=== PATIENT | male | born 1965 | race Caucasian/White ===

== ENCOUNTER 2018-04-21 09:50 | Emergency (ER) | payer BC, OTHER ==
--- NOTE | 2018-04-21 10:38 | EDM.PDOC ---
ED HPI GENERAL MEDICAL PROBLEM - General Chief Complaint: Abdominal Pain Stated Complaint: ABD PAIN/HERNIA Time Seen by Provider: 04/21/18 10:23 Source of Information: Reports: Patient History Limitations: Reports: No Limitations - History of Present Illness INITIAL COMMENTS - FREE TEXT/NARRATIVE: Abdominal pain, started this am around 9:15; he states he has had this one time before. He has an umbilical hernia (non diagnosed) and states that his abdomen became rigid and painful. He left a meeting, had to lie down and the pain resolved. This was the same thing that happened in the past. No fever. No nausea or vomiting. He has had rapid weight loss over the last couple of months (on purpose). Onset: Today Duration: Hour(s): (1) Quality: Reports: Ache, Pressure, Sharp, Stabbing Improves with: Reports: Rest Worsens with: Reports: Movement Associated Symptoms: Reports: No Other Symptoms Abdominal Pain Score (Numeric/FACES): 0 - Related Data Allergies Allergy/AdvReac Type Severity Reaction Status Date / Time No Known Allergies Allergy Verified 04/21/18 10:09 Home Meds: Home Meds NK [No Known Home Meds] 04/21/18 [History] Past Medical History Respiratory History: Reports: Sleep Apnea - Past Surgical History Musculoskeletal Surgical History: Reports: Arthroscopic Knee Social & Family History - Tobacco Use Smoking Status *Q: Never Smoker - Recreational Drug Use Recreational Drug Use: No ED ROS GENERAL - Review of Systems Review Of Systems: See Below Constitutional: Reports: No Symptoms Respiratory: Reports: No Symptoms Cardiovascular: Reports: No Symptoms GI/Abdominal: Reports: Abdominal Pain : Reports: No Symptoms Musculoskeletal: Reports: No Symptoms Skin: Reports: No Symptoms Neurological: Reports: No Symptoms ED EXAM, GENERAL - Physical Exam Exam: See Below Exam Limited By: No Limitations General Appearance: Alert, WD/WN, No Apparent Distress Head: Atraumatic, Normocephalic Neck: Full Range of Motion Respiratory/Chest: No Respiratory Distress, Lungs Clear, Normal Breath Sounds Cardiovascular: Normal Peripheral Pulses, Regular Rate, Rhythm, No Edema GI/Abdominal: Normal Bowel Sounds, Soft, Non-Tender, Hernia (umbilical) Extremities: Normal Inspection Neurological: Alert, Oriented, CN II-XII Intact, Normal Cognition, Normal Gait Psychiatric: Normal Affect, Normal Mood Skin Exam: Warm, Dry, Intact, Normal Color Course - Vital Signs Last Recorded V/S: Last Vital Signs Temp 96.3 F 04/21/18 10:07 Pulse 66 04/21/18 10:07 Resp 13 04/21/18 10:07 BP 143/88 H 04/21/18 10:07 Pulse Ox 98 04/21/18 10:07 - Orders/Labs/Meds Orders: Active Orders 24 hr Category Date Time Status UA W/MICROSCOPIC [URIN] Stat Lab 04/21/18 11:24 Ordered - Re-Assessments/Exams Free Text/Narrative Re-Assessment/Exam: 04/21/18 11:30 abdominal xray shows no obstruction, free air or abnormal fluid levels. Departure - Departure Time of Disposition: 11:27 Disposition: Home, Self-Care 01 Condition: Good Clinical Impression: Umbilical hernia Clinical Impression: (Ruled Out): Umbilical hernia with obstruction, without gangrene - Discharge Information Instructions: Hernia, Adult Referrals: Davis Estrada MD [Primary Care Provider] - Forms: ED Department Discharge Additional Instructions: They will contact you for appointment time for the ultrasound. If you have pain again and it does not subside after 1-2 hours, come back to the ER Keep hydrated - Problem List & Annotations (1) Umbilical hernia SNOMED Code(s): 182604169 Code(s): K42.9 - UMBILICAL HERNIA WITHOUT OBSTRUCTION OR GANGRENE Status: Acute Priority: Low Current Visit: Yes - My Orders Last 24 Hours: My Active Orders 04/21/18 11:24 UA W/MICROSCOPIC [URIN] Stat - Assessment/Plan Last 24 Hours: My Active Orders 04/21/18 11:24 UA W/MICROSCOPIC [URIN] Stat
--- NOTE | 2018-04-21 11:08 | CR ---
Abdomen 2V AP Flat Upright INDICATION: abdominal pain, hernia? COMPARISON: None FINDINGS: 4 views. No abnormal bowel gas pattern. No free air or abnormal air-fluid levels. No signs of obstruction. No abnormal calculi. If clinical concern for hernia persists, consider ultrasound.
== END 2018-04-21 11:34 | disposition home or self-care (01) ==
LOC: JP.ED 09:50
DX: K42.9 Umbilical hernia without obstruction or gangrene (principal)
CPT/HCPCS: 74019; 74019-26; 81001; 99284

== ENCOUNTER 2018-05-04 06:27 | Day surgery (SDC) | payer BC ==
[2018-05-04] MEDS ORDERED: fentaNYL 250 MCG/5 ML SDV ONE ×2 (06:50→08:21)
[2018-05-04] MEDS ORDERED: Glycopyrrolate 0.2 MG/ML 5 ML MDV ONE (06:51)
[2018-05-04] MEDS ORDERED: Neostigmine Methylsulfate 1 MG/ML 5 ML Syringe ONE (06:51)
[2018-05-04] MEDS ORDERED: Propofol 200 MG/20 ML SDV ONE (06:51)
[2018-05-04] MEDS ORDERED: Dexamethasone 4 MG/ML SDV ONE (06:51)
[2018-05-04] MEDS ORDERED: Ondansetron 4 MG/2 ML SDV ONE (06:51)
[2018-05-04] MEDS ORDERED: Rocuronium 50 MG/5 ML Vial ONE (06:51)
[2018-05-04] MEDS ORDERED: Succinylcholine 200 MG/10 ML MDV ONE (06:51)
[2018-05-04] MEDS ORDERED: Bupivacaine 0.5%/EPINEPHrine 1:200,000 50 ML MDV ONE (06:55)
[2018-05-04] MEDS ORDERED: Meropenem 500 MG SDV ONE (06:55)
[2018-05-04] MEDS ORDERED: Acetaminophen 500 MG Tab PO ONE (07:00)
[2018-05-04] MEDS ORDERED: ceFAZolin 2 GM in Sodium Chloride 0.9% 50 ML IV ONE (07:00)
[2018-05-04] MEDS ORDERED: Dextrose 5%-Lactated Ringers 1,000 ML IV SCH (07:26)
[2018-05-04] MEDS ORDERED: Ketamine 500 MG/5 ML MDV IV SCH (07:45)
[2018-05-04] MEDS ORDERED: Ropivacaine 60 ML, Dexamethasone 8 MG, EPINEPHrine 0.4 MG, Sodium Chloride 0.9% 17.6 ML NERVRT SCH ×4 (07:45)
[2018-05-04] MEDS ORDERED: Linezolid 200 MG/100 ML Bag IRR ONE (08:18)
[2018-05-04] MEDS ORDERED: Ketorolac 60 MG/2 ML SDV ONE (09:08)
--- NOTE | 2018-05-11 11:23 | OR ---
DATE OF PROCEDURE: 05/04/2018 PREOPERATIVE DIAGNOSIS: Incarcerated umbilical hernia. POSTOPERATIVE DIAGNOSES: 1. Incarcerated umbilical hernia. 2. Extensive intraabdominal adhesions. OPERATIVE PROCEDURES: Diagnostic laparoscopy with lysis of adhesions: A. Repair of incarcerated umbilical hernia with mesh (24283). B. Placement of Vicryl mesh to limit recurrent adhesion formation between pelvic and abdominal wall overlying mesh and underlying viscera. INDICATION FOR PROCEDURE: The patient presents with symptomatic incarcerated umbilical hernia. Plan is to proceed with a diagnostic laparoscopy, laparotomy if necessary, repair of the hernia with mesh. Potential risks including bleeding, infection, recurrence of the hernia, injury to underlying viscera, problems with mesh becoming infected, requiring its removal as well as possibility of cardiopulmonary, septic, or hemorrhagic complications leading to were all discussed, and the patient wishes to proceed. DETAILS OF PROCEDURE: The patient was taken to the operating room and placed in a supine position. After general endotracheal anesthesia was induced, a Steven catheter was placed and the abdomen was prepped and draped, Steven catheter was removed at the end of the procedure. Transverse incision in the left lateral mid abdomen was then made and carried down through the skin and subcutaneous tissue and the peritoneal cavity entered under direct vision with Optiview trocar inflated to 15 mmHg pressure with CO2. Following this, then eventually 4 additional 5 mm trocars were placed across the upper mid abdomen. The patient was noted to have some incarcerated area of omentum into the umbilical hernia. There was also quite a bit in the way of adhesions both above and below the area of the hernia between the abdominal wall and omentum. These extended somewhat down in the pelvis as well. These were then taken down with Harmonic scalpel. At that point, a satisfactory visualization on each side was obtained. The transverse abdominis plane blocks were placed across the lateral mid abdomen on each side using direct visualization of the needle in the correct plane and injection with standard solution. At this point, the area of adhesions around the umbilical hernia were taken down and this allowed with the use of ongoing Harmonic scalpel dissection and external pressure, reduction of the hernia and the hernia contents were then excised and sent as a separate specimen. A [address] mesh with the balloon positioning system was then selected. This was soaked in antibiotic-containing saline solution and placed in intraperitoneal location. A small stab wound just below the umbilicus was made, and the balloon catheter was then pulled up through the abdominal wall and the balloon thus inflated bringing the mesh up to the abdominal wall. This was fixed circumferentially with absorbable tacking screws following the completion of the fixation. The balloon was removed, appeared to be good margin of mesh coverage all the way from the fascial defect which measured around 3 to 4 cm. The patient was felt to be high risk for recurrent adhesion formation between the mesh, underlying viscera, and the pelvic and abdominal wall. Given this, a 12-inch segment of Vicryl mesh was placed underneath the mesh and then extended from that point underneath the pelvic wall behind the urinary bladder along the pelvic sidewalls. At that point, the trocars were removed. Fascia was closed at the 12 mm trocar site with 0 Vicryl stitch and the skin at each incision with 4-0 Vicryl skin stitch. Dressing was applied. The patient was taken to the recovery room in satisfactory condition. Physician teaching assistant, Patricia Romero, played an essential role in assisting in this case, helping to position the patient, retract structures as needed as well as suturing and cutting sutures when indicated. Her presence improved patient safety and decreased the operative time. Jerome Swift MD /[id number]
== END 2018-05-04 11:34 | disposition home or self-care (01) ==
LOC: JP.SDS 06:27
PROVIDERS: ATTEND Surgery
DX: K42.0 Umbilical hernia with obstruction, without gangrene (principal)
CPT/HCPCS: 36415; 49653; 80053; 85027; 88302; A9270; C1781; J0171; J0330; J0690; J1100; J1885; J2020; J2185; J2405; J2704; J2710; J2795; J3010; J3490; J7042; J7050

== ENCOUNTER 2018-07-20 05:38 | Day surgery (SDC) | payer BC ==
[2018-07-20] MEDS ORDERED: Dextrose 5%-Lactated Ringers 1,000 ML IV SCH (06:30)
[2018-07-20] MEDS ORDERED: fentaNYL 100 MCG/2 ML SDV ONE (07:02)
[2018-07-20] MEDS ORDERED: Propofol 200 MG/20 ML SDV ONE (07:02)
[2018-07-20] MEDS ORDERED: Midazolam 1 MG/ML 2 ML SDV ONE (07:02)
--- NOTE | 2018-07-27 14:34 | OR ---
DATE OF PROCEDURE: 07/20/2018 PREOPERATIVE DIAGNOSIS: Indications for screening colonoscopy. POSTOPERATIVE DIAGNOSIS: Normal colonoscopic examination. OPERATIVE PROCEDURE: Flexible colonoscopy. ANESTHESIA: IV sedation. INDICATION FOR PROCEDURE: This is a 53-year-old male presenting with indications for screening colonoscopy. Plan is to proceed with colonoscopy with polypectomy and biopsies as indicated. Potential risks including bleeding and perforation were discussed, and the patient wishes to proceed. DETAILS OF PROCEDURE: The patient was taken to the operating room, placed in a left lateral decubitus position. IV sedation was administered. After the initial digital rectal exam was performed and was unremarkable, colonoscope was passed into the rectum with retroflexion revealing uncomplicated hemorrhoidal columns. The scope was then eventually passed to the level of the cecum. The prep was quite good with there only being a small amount of liquid stool present. To that level, there were no areas of colitis. No diverticular disease. No polyps or other signs of neoplasia. The scope was then withdrawn and the above findings reconfirmed. The procedure was concluded. The patient was taken to recovery room in satisfactory condition. The patient has no personal or family history of the colon neoplasia. Given this, the next colonoscopy should be scheduled for 10 years. Jerome Swift MD /[id number]
== END 2018-07-20 09:05 | disposition home or self-care (01) ==
LOC: JP.SDS 05:38
PROVIDERS: ATTEND Surgery
DX: Z12.11 Encounter for screening for malignant neoplasm of colon (principal); K42.9 Umbilical hernia without obstruction or gangrene
CPT/HCPCS: 45378; J2250; J2704; J3010; J7042

== ENCOUNTER 2023-07-24 01:13 | Emergency (ER) | payer BC ==
[2023-07-24] MEDS ORDERED: Cyclobenzaprine 10 MG Tab PO ONE (01:44)
[2023-07-24] MEDS ORDERED: Acetaminophen/HYDROcodone 325-5 MG Tab PO ONE (01:45)
== END 2023-07-24 02:24 | disposition home or self-care (01) ==
LOC: JP.ED 01:13
DX: J40 Bronchitis, not specified as acute or chronic (principal); M51.24 Other intervertebral disc displacement, thoracic region
CPT/HCPCS: 71046; 99283; A9270

== ENCOUNTER 2023-07-27 08:47 | Emergency (ER) | payer BC ==
[2023-07-27 09:48] LABS: BASOPHILS ABSOLUTE AUTO 0.05 K/uL (0.00-0.10); BASOPHILS PERCENT AUTO 0.6 % (0.1-1.3); EOSINOPHILS ABSOLUTE AUTO 0.25 K/uL (0.00-0.40); HEMATOCRIT 46.2 % (38.4-49.7); HEMOGLOBIN 15.7 g/dL (12.9-16.9); IMMATURE GRAN PERCENT AUTO 0.1 % (0.0-0.7); LYMPHOCYTES ABSOLUTE AUTO 1.33 K/uL (0.8-3.3); LYMPHOCYTES PERCENT AUTO 16.1 % (11.4-47.7); MEAN CORPUSCULAR HEMOGLOBIN 30.5 pg (31.6-35.5); MEAN CORPUSCULAR VOLUME 89.9 fL (81.4-99.0); MONOCYTES ABSOLUTE AUTO 0.57 K/uL (0.20-0.90); MONOCYTES PERCENT AUTO 6.9 % (3.3-12.6); NEUTROPHILS ABSOLUTE AUTO 6.07 K/uL (1.0-7.6); NEUTROPHILS PERCENT AUTO 73.3 % (40.0-78.1); PLATELET COUNT,PLT 176 K/uL (130-375); RED BLOOD CELL COUNT 5.14 M/uL (4.14-5.76); WHITE BLOOD CELL COUNT,WBC 8.3 K/uL (3.2-11.0)
[2023-07-27 09:58] LABS: IMMATURE GRAN ABSOLUTE AUTO 0.01 K/uL (0.00-0.23)
[2023-07-27 10:05] LABS: BLOOD UREA NITROGEN,BUN 18 mg/dL (7-18); C-REACTIVE PROTEIN 4.86 mg/dL (0.0-0.3); CALCIUM 8.8 mg/dL (8.5-10.1); CARBON DIOXIDE,CO2 28 mmol/L (21-32); CHLORIDE,CL 100 mmol/L (100-108); CREATININE 1.2 mg/dL (0.8-1.3); ESTIMATED GFR 71 mL/min (>60); GLUCOSE RANDOM 114 mg/dL (74-106); POTASSIUM,K 4.6 mmol/L (3.6-5.2); SODIUM,NA 137 mmol/L (140-148)
[2023-07-27 10:06] LABS: ANION GAP 13.6 mmol/L (5.0-14.0)
[2023-07-27] MEDS ORDERED: Methocarbamol 500 MG Tab PO ONE (10:11)
== END 2023-07-27 10:53 | disposition home or self-care (01) ==
LOC: JP.ED 08:47
DX: S16.1XXA Strain of muscle, fascia and tendon at neck level, initial encounter (principal); E66.9 Obesity, unspecified; Z68.36 Body mass index [BMI] 36.0-36.9, adult; X58.XXXA Exposure to other specified factors, initial encounter
CPT/HCPCS: 36415; 80048; 83605; 85025; 86140; 99283; A9270

== ENCOUNTER 2024-10-17 21:26 | Emergency (ER) | payer BC | END 2024-10-17 22:05 | disposition home or self-care (01) | LOC: JP.ED 21:26 | DX: J06.9 Acute upper respiratory infection, unspecified (principal); B97.89 Other viral agents as the cause of diseases classified elsewhere; H65.01 Acute serous otitis media, right ear; E66.9 Obesity, unspecified; Z68.38 Body mass index [BMI] 38.0-38.9, adult | CPT/HCPCS: 99283 ==